=== PATIENT | female | born 1955 | race American Indian/Alaskan Native ===

== ENCOUNTER 2018-07-30 08:37 | Outpatient (CLI) | payer OTHER ==
--- NOTE | 2018-07-31 14:10 | XRay Report ---
XRAY BILATERAL ANKLE THREE VIEWS EACH: 07/30/18 08:37:00 CLINICAL: Bilateral ankle pain. FINDINGS: Right: The ankle mortise is intact. No fracture or dislocation. 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 Moderate soft tissue swelling. No foreign body or soft tissue air. Left: The ankle mortise is intact. No fracture or dislocation. Moderate soft tissue swelling. No foreign body or soft tissue air. IMPRESSION: Nonspecific bilateral soft tissue edema. Right talocalcaneal and tibiotalar arthritis.
== END 2018-07-30 08:38 | disposition home or self-care (01) ==
LOC: SPVIMAG 08:37
PROVIDERS: ATTEND Physical Medicine & Rehabilitation
DX: M19.272 Secondary osteoarthritis, left ankle and foot (principal); M19.271 Secondary osteoarthritis, right ankle and foot; M79.89 Other specified soft tissue disorders